=== PATIENT | male | born 1960 | race Caucasian/White ===

== ENCOUNTER → 2020-01-03 | Outpatient (CLI) | payer OTHER ==
--- NOTE | 2020-01-07 10:11 | MR ---
EXAMINATION TYPE: MR Prostate wo/w con DATE OF EXAM: 01/03/2020 COMPARISON: None. IMAGE QUALITY: . INDICATION: Elevated PSA Levels, 5.440 PSA: 5.44 ng/ml on November 06, 2019 Recent Biopsy and Date: December 30, 2016 Pathology Report (If Applicable): All samples benign TECHNIQUE: Examination was performed using a 3T MRI without an endorectal coil. Multiparametric imaging was perf ormed with T2 mutliplanar sequences, axial diffusion weighted imaging and dynamic contrast enhanced i maging, utilizing 8.5 mL intravenous Gadavist gadolinium contrast. FINDINGS: There is no clinically significant cancer identified. PROSTATE VOLUME: 4.3 cm SI x 3.4 cm AP x 4.3 cm LR Vol= 32.9 cc PSA DENSITY: 3.948 ng/ml/cc Thinning of the peripheral zone with some areas of indistinct hypointensity on ADC mapping bilaterall y particularly central lower aspect. No areas of at least [id number] hypointensity with some in creased signal on diffusion-weighted images. Heterogeneous transitional zone without areas of focal hypointensity on T2-weighted images. Prostatic capsule fairly well maintained. Seminal vesicles are within normal limits. No adjacent susp icious adenopathy. Mild trabeculation of the bladder wall without suspicious thickening. Visualized groin hernia or adenopathy. Visualized osseous structures are intact. No concerning pelvic fluid collection. Pelvic muscle bulk is maintained. IMPRESSION: A focus of clinically significant cancer is not identified. Highest Assessment Category: 2 MRI Stage: T0 N0 M0 based on review of pelvic images. False negative rates for MRI range from 5-20% depending on risk profile. Assessment Categories: 1 ? Very low (clinically significant cancer is highly unlikely to be present) 2 ? Low (clinically significant cancer is unlikely to be present) 3 ? Intermediate (the presence of clinically significant cancer is equivocal) 4 ? High (clinically significant cancer is likely to be present) 5 ? Very high (clinically significant cancer is highly likely to be present)
== END | disposition home or self-care (01) ==
LOC: RADMRIMAIN 08:12
PROVIDERS: ATTEND Urology
DX: R97.20 Elevated prostate specific antigen [PSA] (principal)
CPT/HCPCS: 72197; A9585